=== PATIENT | male | born 1970 | race Caucasian/White ===

== ENCOUNTER 2021-09-28 17:19 | Emergency (ER) | payer BC, SELFPAY ==
[2021-09-28 18:03] LABS: #Basophils 0.1 thou/uL (0.0-0.2); #Eosinphils 0.3 thou/uL (0.0-0.7); #Lymphocytes 1.8 thou/uL (1.20-3.40); #Monocytes 0.9 thou/uL (0.11-0.59); #Neutrophils 6.6 thou/uL (1.40-6.50); %Basophils 0.6 % (0.0-1.0); %Eosinophils 3.2 % (0.0-10.0); %Lymphocytes 18.9 % (21.0-51.0); %Neutrophils 68.3 % (42.0-75.0); Hemoglobin 15.2 g/dL (14.0-18.0); Mean Corpuscular HGB CONC 32.2 g/dL (32.0-36.0); Mean Corpuscular Hemoglobin 26.5 pg (27.0-31.0); Mean Corpuscular Volume 82.4 fL (78.0-98.0); Mean Platelet Volume 6.2 fL (7.4-10.4); Platelet Count 343 thou/uL (130-400); RBC Distribution Width 14.3 % (11.5-14.5); Red Blood Cell (RBC) Count 5.73 mill/uL (4.70-6.10); White Blood Cell (WBC) Count 9.6 thou/uL (4.8-10.8)
[2021-09-28 18:28] LABS: ALT (SGPT) 23 U/L (8-55); AST (SGOT) 19 U/L (5-34); Alkaline Phosphatase 65 U/L (40-110); Anion Gap 12 mmol/L (10-20); BUN (Urea Nitrogen) 16 mg/dL (8.4-25.7); Bilirubin, Total 0.5 mg/dL (0.2-1.2); Calc. Creatinine Clearance 0 mL/min (70-130); Calcium 9.8 mg/dL (7.8-10.44); Carbon Dioxide 25 mmol/L (22-29); Chloride 103 mmol/L (98-107); Globulin 3.5 g/dL (2.4-3.5); Glucose 91 mg/dL (70-105); Lipase 64 U/L (8-78); Potassium 4.2 mmol/L (3.5-5.1); Protein, Total 7.5 g/dL (6.0-8.3); Sodium 136 mmol/L (136-145)
[2021-09-28 19:39] LABS: Bilirubin Negative (Negative); Blood, Urine Negative (Negative); Clarity Clear (Clear); Glucose, Urine (Dipstick) Greater than 1000 mg/dL (Negative); Ketone, Urine Negative (Negative); Leukocyte Negative Leu/uL (Negative); Nitrite Negative (Negative); Protein, Urine (Dipstick) 10 mg/dL (Neg-Trace); Specific Gravity, Urine 1.032 (1.002-1.036); Urobilinogen Normal mg/dL (Less than 2)
== END 2021-09-28 22:40 | disposition home or self-care (01) ==
LOC: ERS 17:19
DX: K57.32 Diverticulitis of large intestine without perforation or abscess without bleeding (principal); I48.91 Unspecified atrial fibrillation; Z79.899 Other long term (current) drug therapy
CPT/HCPCS: 36415; 71045; 74177; 80053; 81003; 83690; 84484; 85025; 93005

== ENCOUNTER 2021-11-28 19:37 | Inpatient (IN) | payer BC, SELFPAY ==
[~2021-11-28 19:37] MED LIST: Iopamidol-370 76% 500 ML 1 ML ONE
[2021-11-28] MEDS ORDERED: Nitroglycerin 2% Ointment 1 INCH/1 GM Packet ONE (19:58)
[2021-11-28] MEDS ORDERED: Aspirin Chewable 81 MG TAB ONE (19:58)
[2021-11-28 20:10] LABS: #Eosinphils 0.2 thou/uL (0.0-0.7); #Lymphocytes 1.2 thou/uL (1.20-3.40); #Monocytes 0.7 thou/uL (0.11-0.59); #Neutrophils 9.7 thou/uL (1.40-6.50); %Basophils 0.3 % (0.0-1.0); %Eosinophils 1.6 % (0.0-10.0); %Lymphocytes 9.9 % (21.0-51.0); %Monocytes 6.2 % (0.0-10.0); Hemoglobin 15.9 g/dL (14.0-18.0); Mean Corpuscular Hemoglobin 25.7 pg (27.0-31.0); Mean Corpuscular Volume 80.4 fL (78.0-98.0); Mean Platelet Volume 6.7 fL (7.4-10.4); Platelet Count 330 thou/uL (130-400); Red Blood Cell (RBC) Count 6.18 mill/uL (4.70-6.10); White Blood Cell (WBC) Count 11.9 thou/uL (4.8-10.8)
[2021-11-28] MEDS ORDERED: Morphine 4 MG/ML VIAL ONE (20:26)
[2021-11-28] MEDS ORDERED: diphenhydrAMINE 12.5 MG/5 ML UDCUP ONE (20:26)
[2021-11-28] MEDS ORDERED: diphenhydrAMINE 50 MG/ML VIAL ONE (20:27)
[2021-11-28 20:45] LABS: ALT (SGPT) 26 U/L (8-55); AST (SGOT) 38 U/L (5-34); Albumin 4.1 g/dL (3.5-5.0); Alkaline Phosphatase 73 U/L (40-110); Anion Gap 17 mmol/L (10-20); BUN (Urea Nitrogen) 17 mg/dL (8.4-25.7); Bilirubin, Total 0.4 mg/dL (0.2-1.2); Calc. Creatinine Clearance 0 mL/min (70-130); Calcium 9.2 mg/dL (7.8-10.44); Carbon Dioxide 23 mmol/L (22-29); Chloride 102 mmol/L (98-107); Estimated GFR 83; Globulin 3.7 g/dL (2.4-3.5); Glucose 132 mg/dL (70-105); Lipase 73 U/L (8-78); Potassium 4.9 mmol/L (3.5-5.1); Protein, Total 7.8 g/dL (6.0-8.3); Sodium 137 mmol/L (136-145)
[2021-11-28 23:53] VITALS: BMI 36.9
[2021-11-29] MEDS ORDERED: Ondansetron ODT 4 MG TAB PO PRN (01:38)
[2021-11-29] MEDS ORDERED: Acetaminophen 325 MG TAB PO PRN (01:38)
[2021-11-29 02:20] LABS: #Eosinphils 0.1 thou/uL (0.0-0.7); #Lymphocytes 1.2 thou/uL (1.20-3.40); #Monocytes 0.9 thou/uL (0.11-0.59); #Neutrophils 7.6 thou/uL (1.40-6.50); %Basophils 0.2 % (0.0-1.0); %Eosinophils 1.2 % (0.0-10.0); %Lymphocytes 12.5 % (21.0-51.0); %Monocytes 8.7 % (0.0-10.0); %Neutrophils 77.4 % (42.0-75.0); Hemoglobin 14.7 g/dL (14.0-18.0); Mean Corpuscular HGB CONC 32.9 g/dL (32.0-36.0); Mean Corpuscular Hemoglobin 26.4 pg (27.0-31.0); Mean Corpuscular Volume 80.3 fL (78.0-98.0); Mean Platelet Volume 6.7 fL (7.4-10.4); Platelet Count 281 thou/uL (130-400); RBC Distribution Width 15.2 % (11.5-14.5); Red Blood Cell (RBC) Count 5.58 mill/uL (4.70-6.10); White Blood Cell (WBC) Count 9.8 thou/uL (4.8-10.8)
[2021-11-29 02:50] LABS: Anion Gap 13 mmol/L (10-20); BUN (Urea Nitrogen) 15 mg/dL (8.4-25.7); Calc. Creatinine Clearance 152 mL/min (70-130); Calcium 8.7 mg/dL (7.8-10.44); Carbon Dioxide 25 mmol/L (22-29); Cardiac Risk 4.4 (Less than 4.5); Chloride 103 mmol/L (98-107); Cholesterol 161 mg/dl (< 200 Desired); Estimated GFR 89; Glucose 103 mg/dL (70-105); HDL Cholesterol 37 mg/dL (>60 Neg Risk); LDL Cholesterol, Calculated 109 mg/dL; Magnesium 1.9 mg/dL (1.6-2.6); Potassium 4.1 mmol/L (3.5-5.1); Sodium 137 mmol/L (136-145); Triglycerides 75 mg/dL (Less than 150)
[2021-11-29 02:55] LABS: Troponin I 0.012 ng/mL (< 0.028)
[2021-11-29] MEDS: Morphine 4 MG/ML VIAL SLOW IVP PRN ×2 (04:20→09:41)
[2021-11-29] MEDS: Aspirin Chewable 81 MG TAB PO SCH (08:12)
[2021-11-29] MEDS ORDERED: Iopamidol 370 76% 100 ML VIAL ONE (09:33)
[2021-11-29 10:06] LABS: Amphetamine Not Detected (NotDetected); Barbiturates Screen Not Detected (NotDetected); Benzodiazepine Screen Not Detected (NotDetected); Cocaine Metabolite Screen Not Detected (NotDetected); Methadone Not Detected (NotDetected); Methamphetamine Not Detected (NotDetected); Opiate Screen Detected (NotDetected); Oxycodone Screen Not Detected (NotDetected); Phencyclidine (PCP) Not Detected (NotDetected); THC/Cannabinoid Screen Not Detected (NotDetected); Tricyclic Screen Not Detected (NotDetected)
[2021-11-29] MEDS: Nitroglycerin 0.4 MG TAB (25 Tab Bottle) SL PRN ×3 (10:33→10:44)
[2021-11-29] MEDS ORDERED: ALPRAZolam 0.5 MG TAB PO PRN (10:48)
[2021-11-29] MEDS ORDERED: traZODone HCl 50 MG TAB PO PRN (11:10)
[2021-11-29] MEDS ORDERED: Morphine 4 MG/ML VIAL SLOW IVP SCH (12:00)
[2021-11-29] MEDS ORDERED: Communication Order-Pharmacy FS SCH (12:00)
[2021-11-29] MEDS ORDERED: Fentanyl 100 MCG/2 ML VIAL ONE (12:29)
[2021-11-29] MEDS ORDERED: Midazolam HCl 2 mg/2 ml Vial ONE (12:29)
[2021-11-29] MEDS ORDERED: Nitroglycerin 100MG/250ML BOT 250 ML ONE (12:30)
[2021-11-29] MEDS ORDERED: Heparin 10,000 UNITS/ 10 ML VIAL ONE (12:30)
[2021-11-29] MEDS ORDERED: Verapamil 5 MG/2 ML VIAL ONE (12:30)
[2021-11-29] MEDS ORDERED: hydrALAZINE 20 MG/ML VIAL ONE (13:54)
[2021-11-29] MEDS ORDERED: Sodium Chloride 0.9% 200 ML IV SCH (14:14)
[2021-11-29] MEDS ORDERED: Nitroglycerin 0.4 MG TAB (25 Tab Bottle) SL PRN (14:14)
[2021-11-29] MEDS: Acetaminophen/Codeine 30-300mg Tablet PO PRN ×2 (14:50→20:20)
[2021-11-29] MEDS: Valsartan 80 MG TAB PO SCH (14:51)
[2021-11-29] MEDS: Carvedilol 25 MG TAB PO SCH (14:51)
[2021-11-29] MEDS: Amiodarone 200 MG TAB PO SCH (14:51)
[2021-11-29] MEDS ORDERED: Ketorolac Tromethamine 30 MG/ML VIAL IVP PRN (15:44)
[2021-11-29] MEDS: Cyclobenzaprine 10 MG TAB PO PRN ×2 (17:27→20:20)
[2021-11-29 18:08] LABS: CKMB 1.6 ng/mL (0-6.6)
[2021-11-29] MEDS ORDERED: Atorvastatin Calcium 40 MG TAB PO SCH (21:00)
[2021-11-30] MEDS: Cyclobenzaprine 10 MG TAB PO PRN (02:11)
[2021-11-30] MEDS: Acetaminophen/Codeine 30-300mg Tablet PO PRN (02:11)
[2021-11-30] MEDS: Valsartan 80 MG TAB PO SCH (08:04)
[2021-11-30] MEDS: Aspirin Chewable 81 MG TAB PO SCH (08:04)
[2021-11-30] MEDS: Amiodarone 200 MG TAB PO SCH (08:05)
[2021-11-30] MEDS: Carvedilol 25 MG TAB PO SCH (08:05)
[2021-11-30] MEDS ORDERED: Insulin Regular 300 UNITS/3 ML VIAL SC PRN ×2 (08:55)
[2021-11-30] MEDS ORDERED: Dextrose 5% in Water 1,000 ML IV PRN (08:55)
[2021-11-30] MEDS ORDERED: Dextrose 50% Abboject 50 ML SYRINGE SLOW IVP PRN (08:55)
[2021-11-30] MEDS ORDERED: Dexamethasone 4 mg/ml Vial SLOW IVP SCH (09:00)
[2021-11-30] MEDS ORDERED: Empagliflozin 25 MG TAB PO SCH (09:00)
[2021-11-30] MEDS ORDERED: Albuterol 200 PUFF (6.7GM INHALER) INH PRN (09:13)
[2021-11-30] MEDS ORDERED: REMDESIVIR 200 MG in Sodium Chloride 0.9% 250 ML 210 ML IV SCH (09:30)
[2021-11-30] MEDS: Albuterol 200 PUFF (6.7GM INHALER) INH SCH ×2 (10:13→13:51)
[2021-11-30 16:36] VITALS: BP 123/80; TEMP 98.3
[2021-11-30] MEDS ORDERED: Enoxaparin Sodium 40 MG/0.4 ML SYRINGE SC SCH (21:00)
[2021-12-01] MEDS ORDERED: REMDESIVIR 100 MG in Sodium Chloride 0.9% 250 ML 230 ML IV SCH (09:30)
== END 2021-11-30 17:09 | disposition home or self-care (01) | DRG 286 ==
LOC: ERS 19:37 → 2SW 22:22 → OBSVTOIN 11-29 16:17
PROVIDERS: ADMIT Student in an Organized Health Care Education/Training Program; ATTEND Internal Medicine
PROC: 4A023N7 Measurement of Cardiac Sampling and Pressure, Left Heart, Percutaneous Approach (ICD-10-PCS; principal; 2021-11-29)
PROC: B2111ZZ Fluoroscopy of Multiple Coronary Arteries using Low Osmolar Contrast (ICD-10-PCS; 2021-11-29)
PROC: B2151ZZ Fluoroscopy of Left Heart using Low Osmolar Contrast (ICD-10-PCS; 2021-11-29)
PROC: XW033E5 Introduction of Remdesivir Anti-infective into Peripheral Vein, Percutaneous Approach, New Technology Group 5 (ICD-10-PCS; 2021-11-30)
PROC: 3E0333Z Introduction of Anti-inflammatory into Peripheral Vein, Percutaneous Approach (ICD-10-PCS; 2021-11-30)
PROC: 8E0ZXY6 Isolation (ICD-10-PCS; 2021-11-30)
DX: R07.89 Other chest pain (principal); U07.1 COVID-19; I42.9 Cardiomyopathy, unspecified; I13.0 Hypertensive heart and chronic kidney disease with heart failure and stage 1 through stage 4 chronic kidney disease, or unspecified chronic kidney disease; I50.9 Heart failure, unspecified; K21.9 Gastro-esophageal reflux disease without esophagitis; I16.0 Hypertensive urgency; I25.10 Atherosclerotic heart disease of native coronary artery without angina pectoris; F32.A Depression, unspecified; E11.22 Type 2 diabetes mellitus with diabetic chronic kidney disease; N18.2 Chronic kidney disease, stage 2 (mild); I48.91 Unspecified atrial fibrillation; Z95.810 Presence of automatic (implantable) cardiac defibrillator; Z79.82 Long term (current) use of aspirin; Z79.899 Other long term (current) drug therapy; Z88.5 Allergy status to narcotic agent; Z98.890 Other specified postprocedural states
CPT/HCPCS: 36415; 36416; 71045; 71275; 80048; 80053; 80061; 80306; 82553; 83690; 83735; 83880; 84443; 84484; 85025; 93005; 93010; 93306; 93458; 94760; 96361; 96374; 96375; 96376; 99152; 99153; C1769; C1887; C1894; G0378; J0248; J0360; J1100; J1200; J1644; J1885; J2250; J2270; J3010; J7050; Q0163; Q9967; U0003; U0005

== ENCOUNTER 2022-04-08 08:54 | Inpatient (IN) | payer BC ==
[2022-04-08] MEDS ORDERED: Magnesium 2 GM/50 ML BAG (IN WATER) ONE (11:55)
[2022-04-08 11:59] LABS: Hemoglobin 16.7 g/dL (14.0-18.0); Mean Corpuscular HGB CONC 34.2 g/dL (32.0-36.0); Mean Corpuscular Hemoglobin 27.7 pg (27.0-31.0); Mean Platelet Volume 6.9 fL (7.4-10.4); Platelet Count 319 10x3/uL (130-400); RBC Distribution Width 14.7 % (11.5-14.5); Red Blood Cell (RBC) Count 6.04 mill/uL (4.70-6.10); White Blood Cell (WBC) Count 13.2 10x3/uL (4.8-10.8)
[2022-04-08] MEDS ORDERED: Enoxaparin Sodium 100 MG/ML SYRINGE ONE (12:02)
[2022-04-08 12:10] LABS: Calcium 9.5 mg/dL (7.8-10.44); Chloride 106 mmol/L (98-107); Potassium 4.2 mmol/L (3.5-5.1); Sodium 137 mmol/L (136-145)
[2022-04-08 12:11] LABS: Globulin 2.7 g/dL (2.4-3.5); Glucose 105 mg/dL (70-105); Protein, Total 6.7 g/dL (6.0-8.3)
[2022-04-08 12:12] LABS: Anion Gap 15 mmol/L (10-20); Carbon Dioxide 20 mmol/L (22-29)
[2022-04-08 12:13] LABS: Bilirubin, Total 0.4 mg/dL (0.2-1.2)
[2022-04-08 12:14] LABS: Alkaline Phosphatase 63 U/L (40-110); Calc. Creatinine Clearance 0 mL/min (70-130); Estimated GFR 57
[2022-04-08 12:15] LABS: BUN (Urea Nitrogen) 22 mg/dL (8.4-25.7)
[2022-04-08 12:16] LABS: AST (SGOT) 32 U/L (5-34)
[2022-04-08 12:17] LABS: ALT (SGPT) 25 U/L (8-55); PTT 32.9 sec (22.9-36.1); Prothrombin Time 13.7 sec (12.0-14.7)
[2022-04-08 12:17] LABS: Bacteria/HPF None Seen HPF (None Seen); Bilirubin Negative (Negative); Blood, Urine Negative (Negative); Clarity Clear (Clear); Glucose, Urine (Dipstick) Greater than 1000 mg/dL (Negative); Ketone, Urine 10 mg/dL (Negative); Leukocyte Negative Leu/uL (Negative); Nitrite Negative (Negative); Protein, Urine (Dipstick) 30 mg/dL (Neg-Trace); RBC/HPF 0-3 HPF (0-3); Squamous Epithelial 0-3 HPF (0-3); WBC/HPF 0-3 HPF (0-3); pH, Urine 5.5 (5.0-9.0)
[2022-04-08 12:21] LABS: Acetaminophen Less than 10.0 mcg/mL (10.0-30.0); Alcohol Less than 10 mg/dL (Less than 10); CK (CPK) 985 U/L (30-200); Salicylate Less than 8.0 mg/dL (15.0-30.0)
[2022-04-08 12:21] LABS: Specific Gravity, Urine 1.048 (1.002-1.036)
[2022-04-08] MEDS ORDERED: Ketamine 50 MG/ML (10ML VIAL) ONE (12:24)
[2022-04-08] MEDS ORDERED: Digoxin 0.5 MG/2 ML AMP ONE (12:24)
[2022-04-08 12:28] LABS: Band 3 % (5-11); Eosinophils 1 % (0-10); Lymphocytes 16 % (21-51); MDiff Complete? YES; Monocytes 11 % (0-10); Neutrophil 67 % (42-75); Platelet Morphology Comment Appears Adequate; RBC Morphology Normal
[2022-04-08 12:34] LABS: Amphetamine Not Detected (NotDetected); Barbiturates Screen Not Detected (NotDetected); Benzodiazepine Screen Detected (NotDetected); Cocaine Metabolite Screen Not Detected (NotDetected); Methadone Not Detected (NotDetected); Methamphetamine Detected (NotDetected); Opiate Screen Not Detected (NotDetected); Oxycodone Screen Not Detected (NotDetected); Phencyclidine (PCP) Not Detected (NotDetected); THC/Cannabinoid Screen Not Detected (NotDetected); Tricyclic Screen Not Detected (NotDetected)
[2022-04-08 13:32] LABS: SARS-CoV-2 NAA Rapid Test Not Detected (NotDetected)
[2022-04-08] MEDS ORDERED: Ondansetron PF 4 MG/2 ML Vial IVP PRN (14:20)
[2022-04-08] MEDS ORDERED: Acetaminophen 325 MG TAB PO PRN (14:20)
[2022-04-08] MEDS ORDERED: Senokot S 8.6-50 MG TAB PO PRN (14:20)
[2022-04-08] MEDS ORDERED: ALPRAZolam 0.5 MG TAB PO PRN (14:23)
[2022-04-08] MEDS ORDERED: Diltiazem 125 MG in Sodium Chloride 0.9% 100 ML IVPB SCH (15:15)
[2022-04-08 15:23] LABS: Troponin I 0.012 ng/mL (< 0.028)
[2022-04-08 16:37] VITALS: BMI 36.0
[2022-04-08] MEDS: Sodium Chloride 0.9% 1,000 ML IV SCH (17:28)
[2022-04-08 18:14] LABS: Troponin I 0.016 ng/mL (< 0.028)
[2022-04-08] MEDS ORDERED: HumaLOG 300 UNITS/3 ML VIAL SC PRN (18:29)
[2022-04-08] MEDS ORDERED: Dextrose 5% in Water 1,000 ML IV PRN (18:29)
[2022-04-08] MEDS ORDERED: Dextrose 50% Abboject 50 ML SYRINGE SLOW IVP PRN (18:29)
[2022-04-08] MEDS ORDERED: Amiodarone 150 MG, Admixture Fee 1 EACH in Dextrose 5% in Water 100 ML IVPB SCH (19:00)
[2022-04-08] MEDS: Amiodarone 450 MG in Dextrose 5% in Water 250 ML IVPB SCH (19:07)
[2022-04-08] MEDS: Enoxaparin Sodium 120 MG/0.8 ML SYRINGE SC SCH (20:06)
[2022-04-08] MEDS: Famotidine 20 MG TAB PO SCH (20:06)
[2022-04-08] MEDS: traZODone HCl 50 MG TAB PO SCH (20:07)
[2022-04-08] MEDS: Oseltamivir 75 MG CAP PO SCH (20:07)
[2022-04-08] MEDS: Guaifenesin DM 100-10/5 ML UDCUP PO PRN (20:08)
[2022-04-08] MEDS ORDERED: Metoprolol Tartrate 5 MG/5 ML VIAL IVP SCH (22:30)
[2022-04-08 23:05] LABS: Anion Gap 13 mmol/L (10-20); BUN (Urea Nitrogen) 14 mg/dL (8.4-25.7); Calc. Creatinine Clearance 144 mL/min (70-130); Calcium 8.7 mg/dL (7.8-10.44); Carbon Dioxide 20 mmol/L (22-29); Chloride 106 mmol/L (98-107); Estimated GFR 86; Glucose 86 mg/dL (70-105); Magnesium 2.1 mg/dL (1.6-2.6); Potassium 3.7 mmol/L (3.5-5.1); Sodium 135 mmol/L (136-145)
[2022-04-09] MEDS: Guaifenesin DM 100-10/5 ML UDCUP PO PRN (00:40)
[2022-04-09 03:15] LABS: Hemoglobin 15.4 g/dL (14.0-18.0); Mean Corpuscular HGB CONC 32.7 g/dL (32.0-36.0); Mean Corpuscular Hemoglobin 26.6 pg (27.0-31.0); Mean Corpuscular Volume 81.4 fl (78.0-98.0); Mean Platelet Volume 7.3 fL (7.4-10.4); Platelet Count 260 10x3/uL (130-400); RBC Distribution Width 15.2 % (11.5-14.5); White Blood Cell (WBC) Count 9.4 10x3/uL (4.8-10.8)
[2022-04-09 03:16] LABS: Anion Gap 15 mmol/L (10-20); Anisocytosis SLIGHT = 6-15 cells (100X) (0-5/hpf); BUN (Urea Nitrogen) 13 mg/dL (8.4-25.7); Band 3 % (5-11); Calc. Creatinine Clearance 161 mL/min (70-130); Calcium 8.4 mg/dL (7.8-10.44); Carbon Dioxide 20 mmol/L (22-29); Chloride 105 mmol/L (98-107); Estimated GFR 99; Glucose 88 mg/dL (70-105); Lymphocytes 10 % (21-51); MDiff Complete? YES; Magnesium 1.9 mg/dL (1.6-2.6); Monocytes 11 % (0-10); Neutrophil 75 % (42-75); Platelet Morphology Comment Appears Adequate; Potassium 3.8 mmol/L (3.5-5.1); Sodium 136 mmol/L (136-145)
[2022-04-09] MEDS: Sodium Chloride 0.9% 1,000 ML IV SCH (03:44)
[2022-04-09] MEDS: Amiodarone 450 MG in Dextrose 5% in Water 250 ML IVPB SCH (04:55)
[2022-04-09] MEDS: Benzonatate 100 MG CAP PO PRN ×2 (05:14→21:42)
[2022-04-09] MEDS: Oseltamivir 75 MG CAP PO SCH ×2 (08:57→21:42)
[2022-04-09] MEDS: Enoxaparin Sodium 120 MG/0.8 ML SYRINGE SC SCH ×2 (08:57→21:42)
[2022-04-09] MEDS: Sertraline 25 MG TAB PO SCH (08:57)
[2022-04-09] MEDS: Aspirin Chewable 81 MG TAB PO SCH (08:58)
[2022-04-09] MEDS: Empagliflozin 25 MG TAB PO SCH (08:58)
[2022-04-09] MEDS: Famotidine 20 MG TAB PO SCH ×2 (08:58→21:42)
[2022-04-09] MEDS ORDERED: Amiodarone 200 MG TAB PO SCH (09:00)
[2022-04-09] MEDS ORDERED: Enoxaparin Sodium 40 MG/0.4 ML SYRINGE SC SCH (09:00)
[2022-04-09] MEDS ORDERED: EPLERENONE 25 MG PO SCH (09:00)
[2022-04-09] MEDS: Ibuprofen 800 MG TAB PO PRN ×2 (09:00→22:16)
[2022-04-09] MEDS ORDERED: FLU VACC QS2022-23(6MOS UP)/PF 60 MCG/0.5 ML SYRINGE IM ONE (09:00)
[2022-04-09] MEDS ORDERED: Carvedilol 25 MG TAB PO SCH (09:00)
[2022-04-09] MEDS ORDERED: Valsartan 80 MG TAB PO SCH (09:00)
[2022-04-09] MEDS ORDERED: Digoxin 0.5 MG/2 ML AMP SLOW IVP SCH (12:00)
[2022-04-09] MEDS: Digoxin 0.5 MG/2 ML AMP SLOW IVP SCH (17:53)
[2022-04-09] MEDS: traZODone HCl 50 MG TAB PO SCH (21:42)
[2022-04-10] MEDS: Digoxin 0.5 MG/2 ML AMP SLOW IVP SCH (00:58)
[2022-04-10 04:36] LABS: Magnesium 2.2 mg/dL (1.6-2.6)
[2022-04-10 08:05] LABS: #Eosinphils 0.2 thou/uL (0.0-0.7); #Lymphocytes 1.5 thou/uL (1.20-3.40); #Monocytes 1.2 thou/uL (0.11-0.59); #Neutrophils 5.3 thou/uL (1.40-6.50); %Basophils 0.3 % (0.0-1.0); %Eosinophils 2.2 % (0.0-10.0); %Lymphocytes 17.8 % (21.0-51.0); %Monocytes 14.5 % (0.0-10.0); %Neutrophils 65.2 % (42.0-75.0); Hemoglobin 16.2 g/dL (14.0-18.0); Mean Corpuscular HGB CONC 31.9 g/dL (32.0-36.0); Mean Corpuscular Hemoglobin 26.1 pg (27.0-31.0); Mean Platelet Volume 7.1 fL (7.4-10.4); Platelet Count 268 10x3/uL (130-400); Red Blood Cell (RBC) Count 6.21 mill/uL (4.70-6.10); White Blood Cell (WBC) Count 8.2 10x3/uL (4.8-10.8)
[2022-04-10 08:16] LABS: Anion Gap 13 mmol/L (10-20); BUN (Urea Nitrogen) 16 mg/dL (8.4-25.7); Calc. Creatinine Clearance 143 mL/min (70-130); Carbon Dioxide 23 mmol/L (22-29); Chloride 103 mmol/L (98-107); Estimated GFR 86; Glucose 76 mg/dL (70-105); Sodium 135 mmol/L (136-145)
[2022-04-10] MEDS: Sertraline 25 MG TAB PO SCH (08:41)
[2022-04-10] MEDS: Famotidine 20 MG TAB PO SCH ×2 (08:41→22:13)
[2022-04-10] MEDS: Aspirin Chewable 81 MG TAB PO SCH (08:42)
[2022-04-10] MEDS: Enoxaparin Sodium 120 MG/0.8 ML SYRINGE SC SCH ×2 (08:42→22:14)
[2022-04-10] MEDS: Oseltamivir 75 MG CAP PO SCH ×2 (08:42→22:13)
[2022-04-10] MEDS: Empagliflozin 25 MG TAB PO SCH (08:42)
[2022-04-10] MEDS ORDERED: Digoxin 0.25 MG TAB PO SCH (09:00)
[2022-04-10] MEDS ORDERED: Amiodarone 200 MG TAB PO SCH (11:15)
[2022-04-10] MEDS: methylPREDNISolone Sod Succ 40 MG VIAL IVP SCH ×2 (13:55→22:14)
[2022-04-10] MEDS: Ibuprofen 800 MG TAB PO PRN ×2 (13:57→22:14)
[2022-04-10] MEDS: Benzonatate 100 MG CAP PO PRN (22:13)
[2022-04-10] MEDS: traZODone HCl 50 MG TAB PO SCH (22:13)
[2022-04-10] MEDS: Amiodarone 200 MG TAB PO SCH (22:14)
[2022-04-11 03:12] LABS: #Lymphocytes 0.9 thou/uL (1.20-3.40); #Monocytes 0.2 thou/uL (0.11-0.59); #Neutrophils 6.4 thou/uL (1.40-6.50); %Basophils 0.1 % (0.0-1.0); %Eosinophils 0.3 % (0.0-10.0); %Lymphocytes 12.3 % (21.0-51.0); %Monocytes 3.1 % (0.0-10.0); %Neutrophils 84.2 % (42.0-75.0); Hemoglobin 16.9 g/dL (14.0-18.0); Mean Corpuscular HGB CONC 31.6 g/dL (32.0-36.0); Mean Corpuscular Hemoglobin 25.9 pg (27.0-31.0); Mean Corpuscular Volume 82.1 fl (78.0-98.0); Mean Platelet Volume 7.1 fL (7.4-10.4); Platelet Count 301 10x3/uL (130-400); RBC Distribution Width 14.9 % (11.5-14.5); Red Blood Cell (RBC) Count 6.51 mill/uL (4.70-6.10); White Blood Cell (WBC) Count 7.6 10x3/uL (4.8-10.8)
[2022-04-11 03:36] LABS: Anion Gap 14 mmol/L (10-20); BUN (Urea Nitrogen) 20 mg/dL (8.4-25.7); Calc. Creatinine Clearance 129 mL/min (70-130); Calcium 9.8 mg/dL (7.8-10.44); Carbon Dioxide 23 mmol/L (22-29); Chloride 103 mmol/L (98-107); Estimated GFR 76; Glucose 130 mg/dL (70-105); Magnesium 2.5 mg/dL (1.6-2.6); Potassium 5.2 mmol/L (3.5-5.1); Sodium 135 mmol/L (136-145)
[2022-04-11] MEDS: methylPREDNISolone Sod Succ 40 MG VIAL IVP SCH (06:36)
[2022-04-11 07:30] VITALS: TEMP 97.2
[2022-04-11] MEDS: Oseltamivir 75 MG CAP PO SCH (08:27)
[2022-04-11] MEDS: Sertraline 25 MG TAB PO SCH (08:27)
[2022-04-11] MEDS: Aspirin Chewable 81 MG TAB PO SCH (08:27)
[2022-04-11] MEDS: Amiodarone 200 MG TAB PO SCH (08:27)
[2022-04-11] MEDS: Famotidine 20 MG TAB PO SCH (08:27)
[2022-04-11] MEDS: Enoxaparin Sodium 120 MG/0.8 ML SYRINGE SC SCH (08:27)
[2022-04-11] MEDS ORDERED: Phenylephrine 0.25% Nasal Spray 15 ML BOT ONE (08:28)
[2022-04-11] MEDS: Empagliflozin 25 MG TAB PO SCH (08:29)
[2022-04-11] MEDS ORDERED: Digoxin 0.125 MG TAB PO SCH (09:00)
[2022-04-11 12:36] VITALS: BP 135/90
== END 2022-04-11 15:01 | disposition home or self-care (01) | DRG 193 ==
LOC: ERS 08:54 → IMCU/EMU 13:34
PROVIDERS: ADMIT Internal Medicine; ATTEND Internal Medicine
DX: J10.1 Influenza due to other identified influenza virus with other respiratory manifestations (principal); J96.01 Acute respiratory failure with hypoxia; I50.32 Chronic diastolic (congestive) heart failure; I42.8 Other cardiomyopathies; I48.0 Paroxysmal atrial fibrillation; Z20.822 Contact with and (suspected) exposure to COVID-19; E11.9 Type 2 diabetes mellitus without complications; I11.0 Hypertensive heart disease with heart failure; F39 Unspecified mood [affective] disorder; Z79.899 Other long term (current) drug therapy; Z28.21 Immunization not carried out because of patient refusal; Z88.5 Allergy status to narcotic agent; Z79.82 Long term (current) use of aspirin; Z95.810 Presence of automatic (implantable) cardiac defibrillator; Z82.3 Family history of stroke
CPT/HCPCS: 36415; 71046; 80048; 80053; 80306; 80307; 81003; 81015; 83605; 83735; 83880; 84443; 84484; 85025; 85610; 85730; 93005; 93306; J0282; J1160; J1650; J2920; J3475; J3490; J7050; J7070

== ENCOUNTER 2023-08-23 09:44 | Outpatient (CLI) | payer BC | END 2023-08-23 09:45 | disposition home or self-care (01) | LOC: BICRAD 09:44 | PROVIDERS: ATTEND Nurse Practitioner Family | DX: M54.50 Low back pain, unspecified (principal); M54.30 Sciatica, unspecified side; M47.816 Spondylosis without myelopathy or radiculopathy, lumbar region | CPT/HCPCS: 72100 ==

== ENCOUNTER 2023-09-04 08:50 | Outpatient (CLI) | payer BC | END 2023-09-04 08:51 | disposition home or self-care (01) | LOC: CT 08:50 | PROVIDERS: ATTEND Nurse Practitioner Family | DX: M43.16 Spondylolisthesis, lumbar region (principal); M48.061 Spinal stenosis, lumbar region without neurogenic claudication; M48.07 Spinal stenosis, lumbosacral region | CPT/HCPCS: 72131 ==